=== PATIENT | male | born 1965 | race Caucasian/White ===

== ENCOUNTER 2016-11-14 06:29 | Emergency (ER) | payer MEDICARE, MEDICAID ==
[~2016-11-14] VITALS: Ht 182.9 cm; Wt 150.0 kg
[~2016-11-14 06:29] MED LIST: METF1000 PO; NPH,100V SQ
[2016-11-14 06:33] VITALS: BP 213/111; RESP 22; O2SAT 95
--- NOTE | 2016-11-14 06:51 | ED.REPORT ---
HPI-Sore Throat ONLY HPI/PE done Nov 14, 2016 ED Provider: Mango Knowles MD Patient is a 51 year old male who presents to the ED complaining of sore throat. Associated symptoms include trouble swallowing, R ear pain, and jaw pain. He denies fever, cough, SOB, or any other symptoms. He was at [facility] and was having trouble swallowing his food so he decided to come in. He has been noncompliant with his blood pressure medications. Nursing Notes Stated Complaint: SORE THROAT Chief Complaint: ENT & Mouth Nursing Notes Reviewed: Yes ([employer] not reconciled) Allergies: Coded Allergies: No Known Allergies (Verified , 11/14/16) Scheduled Metformin-Expunged Drug, Do Not Renew! (Metformin-Expunged Drug, Do Not Renew!) 1,000 Mg Tablet 1,000 MG PO AM Nph, Human Insulin Isop-Expunged Drug, Do Not (Novolin N-Expunged Drug, Do Not Renew!) 100 U/Ml Vial 70 U SQ AM Nph, Human Insulin Isop-Expunged Drug, Do Not (Novolin N-Expunged Drug, Do Not Renew!) 100 U/Ml Vial 60 U SQ DAILY before dinner Scheduled PRN Lidocaine HCl (Lidocaine HCl Viscous) 20 Mg/1 Ml Solution 100 MG MM TID PRN PRN For Pain General Time Seen by MD: 06:49 Chief Complaint Sore throat Hx Obtained From: Patient Arrived By: Walk-in Past Medical History Past Medical History Diabetes Hypertension Hyperlipidemia Schizophrenia - [facility] Admission 2008 Past Surgical History Hernia repair Reports: Appendectomy Smoking History Never Smoker, Unknown if Ever Smoker Ambulatory Status Independent Review of Systems + Jaw pain Constitutional: Denies: Fever Ears / Nose / Throat: Reports: Sore throat Respiratory: Denies: Non-productive cough, Shortness of breath GI: Reports: Dysphagia Complete sys rev & neg: except as marked. Physical Exam Initial Vital Signs Vital Signs (First) Date Time Temp Pulse Resp B/P Pulse Ox O2 Delivery O2 Flow Rate FiO2 11/14/16 06:33 36.7 115 22 213/111 95 Room Air Initial VS: Reviewed, Vital signs abnormal (severe HTN) Head / Eyes: Normocephalic Skin: Warm, Dry Neurologic: Alert, Oriented, Nonfocal Psychiatric: Mood/affect normal, Behavior normal, Normal thought content General/Constitutional: Awake, Alert, No acute distress Appearance / Presentation: Positive: Obese ENT: Airway patent, Tympanic membs NL Throat is erythematis. No obvious abscess. No airway compromise or dudley's angina. Neck: No adenopathy Respiratory / Chest: Atraumatic, No respiratory distress Cardiovascular: Regular rhythm, Heart sounds NL Heart Rate / Rhythm: Positive: Tachycardia (Mild ) Interpretation & Diagnostics Lab Results Interpretation Lab Results Interpretation: Strep test negative Re-Eval/Medical Decision Med Decision/Clinical Course This is a 51-year-old male with a history of mental illness and hypertension who presents complaining of several days of increasing sore throat, when is really uncomfortable swallow while at [facility]. Reports a low-grade temperature , but not classic definite fever. Apparently his father of throat cancer surgery is worried about this. On arrival at triage his initial blood pressures extremely elevated-he admits he has been noncompliant with his medications, but simple repeat blood pressure was normal, without any intervention required. Exam the patient's obese, he has pharyngeal erythema-but has no other abnormalities. There is no uvular swelling, no tonsillar exudate, no signs of peritonsillar retropharyngeal abscess. The airway is entirely patent. No cervical adenopathy is appreciated. Lungs are clear. No signs of Dudley angina. he received some Viscous Lidocaine and felt significant improved. Rapid strep was negative. He is given cecal dose of dexamethasone given the severity of a sore throat. Surgeon ibuprofen and viscous lidocaine, and advised the importance of taking his blood pressure medicines and follow up PCP. Patient's discharge in improved condition Source of Hx: Old records Re-Evaluation/Progress : Time of Eval: 07:50 Patient Status: Condition improved Re-Evaluation/Progress Note: Patient is feeling better. Discussed plan for discharge. Patient understands and agrees with plan. All questions addressed at this time. Differential Diagnosis: Positive: Pharyngitis, acute, Pharyngitis, viral, Negative: Aphthous ulcer, Bacterial tracheitis, Cervical lymphadenitis, Croup , Dental abscess, Epiglottitis, Gingivitis, Hand, foot, mouth disease, Herpangina, Herpetic stomatitis, Dudley's angina, Parotitis, Peritonsillar abscess, Peritonsillar cellulitis, Retropharyngeal abscess, Strep throat, Uvulitis Counseled Regarding: Diagnosis, Need for follow-up, When/why to return to ED Discharge & Departure Primary Impression: Pharyngitis Pharyngitis/tonsillitis etiology: unspecified etiology Qualified Code: J02.9 - Acute pharyngitis, unspecified Disposition: Home Discharge Condition All VS Reviewed: Yes Condition: Stable Additional Instructions: 1. The strep test was negative, this suggests that it is a virus that is causing her symptoms and that antibiotics are unlikely to be of benefit, and are therefore not recommended. 2. You can take viscous lidocaine 10 mL was 3-4 times a day as needed for soreness. 3. You can also take ibuprofen (400-600m) or Tylenol (650-1000mg) 3 times a day to help pain or discomfort. 4. Your blood pressure was very high when he first arrived to the emergency department but was much improved without intervention-however there is a reminder that you should be taking her blood pressure medications. 5. Symptoms will likely remain for several more days, should but should be improving over the next week to 10 days. 6. Return if new or worsening symptoms occur. 7. Note: We did give a dose of the medication dexamethasone should help her symptoms. As a side effect it will transiently increase her blood sugars for the next 1-2 days and he should simply be aware of this. No change in your regimen is recommended. Referrals: Della Sevilla PA-C (PCP) Scribe Attestation Portions of this note were transcribed by Gita John. I, Dr. Knowles personally performed the history, physical exam and medical decision-making; I reviewed and confirmed the accuracy of the information in the transcribed note. Signed by: Gita John 11/14/16, 0800 copies to: Della Sevilla PA-C, Matthew F MD Nov 14, 2016 06:51 GITA JOHN Nov 14, 2016 07:04
[2016-11-14 07:01] VITALS: BP 158/79; PULSE 109; RESP 16; O2SAT 93
[2016-11-14] MEDS ORDERED: LIDO20SO MM (07:56)
== END 2016-11-14 08:44 | disposition home or self-care (01) ==
LOC: SED 06:29
DX: J02.9 Acute pharyngitis, unspecified (principal); R13.10 Dysphagia, unspecified; H92.01 Otalgia, right ear; R68.84 Jaw pain; I10 Essential (primary) hypertension; E11.9 Type 2 diabetes mellitus without complications; E78.5 Hyperlipidemia, unspecified